=== PATIENT | female | born 1950 | race Caucasian/White ===

== ENCOUNTER 2016-05-31 12:56 | Emergency (ER) | payer BC ==
[2016-05-31 15:06] VITALS: BP 139/83
--- NOTE | 2016-05-31 15:45 | UC ---
Skin Complaint HPI - HPI Summary HPI Summary: 65 yo female with the onset of right lower brown pain and redness which has worsened over a few days May have bumped leg Has varicosities redness has tracked proximally along the coarse of a vein no calf pain states she has a bad left knee - History of Current Complaint Chief Complaint: UCSkin Time Seen by Provider: 05/31/16 15:31 Stated Complaint: LEG COMPLAINT Onset/Duration: Gradual Onset, Lasting Hours Timing: Constant Onset Severity: Mild Pain Intensity: 2 Pain Scale Used: 0-10 Numeric Location: Other - right brown Character: Redness, Raised, Painful Aggravating: Touch Alleviating: Nothing Associated Signs & Symptoms: Positive: Cough - cold x a few days, Tenderness, Red Streaks. Negative: Nausea, Vomiting, Numbness, Thirst, Diaphoresis, Weakness, Pallor, Shivering, Difficulty Breathing, Fever, Chills, Wheezing, Chest Pain, Hoarseness, Throat Tightening, Rash, Abdominal Pain, Lightheadedness , Syncope, Drainage, Bruising - Allergy/Home Medications Allergies/Adverse Reactions: Allergies Allergy/AdvReac Type Severity Reaction Status Date / Time Penicillins Allergy Severe Anaphylatic Verified 05/31/16 15:06 Shock Erythromycin Allergy Nausea Verified 05/31/16 15:06 Review of Systems Constitutional: Negative Skin: Negative Eyes: Negative ENT: Negative Respiratory: Negative Cardiovascular: Negative Gastrointestinal: Negative Genitourinary: Negative Motor: Negative Neurovascular: Negative Musculoskeletal: Negative Neurological: Negative Psychological: Negative All Other Systems Reviewed And Are Negative: Yes PMH/Surg Hx/FS Hx/Imm Hx Previously Healthy: Yes Endocrine History Of: Denies: Diabetes Cardiovascular History Of: Reports: Hypertension - ON MEDICATION FOR Denies: Pacemaker/ICD Respiratory History Of: Reports: Asthma - PRN INHALERS, Bronchitis - HX OF, Pneumonia GI/ History Of: Denies: Renal Disease Neurological History Of: Reports: Migraine - ON OCCASION-2 X PER MONTH- [employer] Psychological History Of: Reports: Anxiety - SITUATIONAL, Depression Cancer History Of: Denies: Breast Cancer - Surgical History Surgical History: None Surgery Procedure, Year, and Place: T&A- A CHILD[facility]. 1980-C- SECTION-[facility]. 2006 [place] [place],2014 X 3-D&C[place] [place]. 2009- APPENDECTOMY. ARTHROSCOPIC SURGERY RIGHT KNEE 06/2012 AT [facility] [place]. 2014 total hysterectomy - Family History Known Family History: Positive: Other - no hx dvt or pe - Social History Alcohol Use: Occasionally Alcohol Amount: 1/month Substance Use Type: None Smoking Status (MU): Never Smoked Tobacco Have You Smoked in the Last Year: No Physical Exam Triage Information Reviewed: Yes Appearance: Well-Appearing, No Pain Distress, Well-Nourished Vital Signs: Initial Vital Signs Temp 98.6 F 05/31/16 15:01 Pulse 74 05/31/16 15:01 Resp 18 05/31/16 15:01 BP 139/83 05/31/16 15:01 Pulse Ox 98 05/31/16 15:01 Vital Signs Reviewed: Yes Eye Exam: Normal Eyes: Positive: Conjunctiva Clear ENT: Positive: Normal ENT inspection. Negative: Nasal congestion, Nasal drainage, Tonsillar exudate, Trismus, Muffled/hoarse voice Respiratory: Positive: Lungs clear, Normal breath sounds, No respiratory distress, No accessory muscle use Cardiovascular: Positive: RRR, No Murmur Musculoskeletal: Positive: ROM Intact Neurological: Positive: Alert Psychological Exam: Normal Skin Exam: Other - see image Course/Dx - Diagnoses Provider Diagnoses: superficial thrombophebitis Discharge - Discharge Plan Condition: Stable Disposition: HOME Patient Education Materials: Superficial Thrombophlebitis (ED) Referrals: Walter Ybarra MD [Primary Care Provider] - 2 Days Additional Instructions: aleve 2 twice daily heat elevate it when you can Images Front/Back of Body, Lg ([place]): 1 - erythema/tenderness, calf non tender. (-) Rajeev's
== END 2016-05-31 15:54 | disposition home or self-care (01) ==
LOC: UCEAST 12:56
DX: I80.01 Phlebitis and thrombophlebitis of superficial vessels of right lower extremity (principal); I83.91 Asymptomatic varicose veins of right lower extremity; I10 Essential (primary) hypertension; J45.909 Unspecified asthma, uncomplicated; Z88.0 Allergy status to penicillin; Z88.1 Allergy status to other antibiotic agents
CPT/HCPCS: 99211; G0463

== ENCOUNTER 2021-11-07 05:44 | Observation (INO) ==
[2021-11-07] MEDS ORDERED: Buffered Lidocaine 1% SYRIN 1 ml INTRADERM ONE (06:00)
[2021-11-07] MEDS ORDERED: Lactated Ringers 1000 ml BAG 1,000 ML IV SCH (06:00)
[2021-11-07] MEDS ORDERED: Clindamycin 900 MG/D5W BAG 900 MG/50 ML BAG IVPB ONE (06:21)
[2021-11-07] MEDS ORDERED: Lidocaine 1% 50 ML MDV VIAL ONE (06:51)
[2021-11-07] MEDS ORDERED: Prochlorperazine 5 mg/ml 2 ml VIAL (10 mg) IV PRN (07:05)
[2021-11-07] MEDS ORDERED: Naloxone 0.4 mg VIAL 0.4 mg/ml 1 ml VIAL IV PRN (07:05)
[2021-11-07] MEDS ORDERED: Midazolam 2 mg/2 ml VIAL 1 mg/ml 2 ml VIAL (2 mg) ONE ×2 (07:17)
[2021-11-07] MEDS ORDERED: fentaNYL 100 mcg/2 ml 50 MCG/ML VIAL ONE ×2 (07:17→07:41)
[2021-11-07] MEDS ORDERED: ROPIVACAINE 5 MG/ML 30 ML BTL (0.5%) ONE (07:18)
[2021-11-07] MEDS ORDERED: Ondansetron 4 mg VIAL 2 MG/ML 2 ml VIAL ONE (07:33)
[2021-11-07] MEDS ORDERED: Lidocaine 2% PF 5 ML VIAL ONE (07:44)
[2021-11-07] MEDS ORDERED: Magnesium Hydroxide LIQ 30 ML UDC PO PRN (07:46)
[2021-11-07] MEDS ORDERED: Lactulose 30 ml UDC PO PRN (07:46)
[2021-11-07] MEDS ORDERED: Ondansetron ODT 4 mg TAB 4 MG TAB PO PRN (07:46)
[2021-11-07] MEDS ORDERED: Morphine 2 MG/ML SYRINGE IV PRN (07:46)
[2021-11-07] MEDS ORDERED: Ondansetron 4 mg VIAL 2 MG/ML 2 ml VIAL IV PRN (07:46)
[2021-11-07] MEDS ORDERED: Albuterol HFA INHALER 8 gm MDI INH PRN (07:54)
[2021-11-07] MEDS ORDERED: Fexofenadine 180 mg TAB (NF) PO SCH (09:00)
[2021-11-07] MEDS ORDERED: Propofol 10 MG/ML 20 ML BTL ONE (09:10)
[2021-11-07] MEDS ORDERED: HYDROmorphone 1 MG/1 ML SYRINGE ONE (10:26)
[2021-11-07] MEDS: HYDROmorphone 1 MG/1 ML SYRINGE IV PRN ×5 (10:27→11:09)
[2021-11-07] MEDS: Lactated Ringers 1000 ml BAG 1,000 ML IV SCH ×2 (11:36→21:33)
[2021-11-07] MEDS: Vitamin THERAPEUTIC TAB PO SCH (13:38)
[2021-11-07] MEDS: Magnesium Hydroxide LIQ 30 ML UDC PO SCH ×2 (13:38→21:34)
[2021-11-07] MEDS ORDERED: Mometasone/Formoter 100/5 MDI INH PRN (14:20)
[2021-11-07] MEDS: Morphine ER 15 mg TAB ** extended release PO SCH (16:50)
[2021-11-07] MEDS: Clindamycin 600 MG/D5W BAG 600 MG/50 ML BAG IV SCH ×2 (16:51→23:51)
[2021-11-08] MEDS: Morphine ER 15 mg TAB ** extended release PO SCH (03:34)
[2021-11-08 07:25] LABS: Hematocrit 32 % (35-47); Hemoglobin 10.9 g/dL (12.0-16.0); Mean Platelet Volume 8.2 fL (7.4-10.4); Platelet Count 167 10^3/uL (150-450)
[2021-11-08 08:17] LABS: Calcium 8.6 mg/dL (8.6-10.3); Potassium 3.7 mmol/L (3.5-5.0); eGFR CKD-EPI 97.5 (>60)
[2021-11-08] MEDS: Clindamycin 600 MG/D5W BAG 600 MG/50 ML BAG IV SCH (08:19)
[2021-11-08] MEDS: Magnesium Hydroxide LIQ 30 ML UDC PO SCH (08:24)
[2021-11-08] MEDS: Vitamin THERAPEUTIC TAB PO SCH (08:24)
[2021-11-08 11:15] VITALS: BP 116/67
== END 2021-11-08 13:45 | disposition home or self-care (01) ==
LOC: OR 05:44 → SSU 05:44 → EDSTATUS 14:15
PROVIDERS: ADMIT Orthopaedic Surgery Adult Reconstructive Orthopaedic Surgery; ATTEND Orthopaedic Surgery Adult Reconstructive Orthopaedic Surgery